=== PATIENT | female | born 1980 | race Caucasian/White ===

== ENCOUNTER 2020-03-15 11:35 | Outpatient (NON) | payer OTHER, SELFPAY ==
[2020-03-15 23:09] LABS: SARS-CoV-2 RNA PCR Negative
== END 2020-03-15 11:36 ==
PROVIDERS: PCP Family Medicine; Visit Provider Family Medicine
DX: Z20.828 Contact with and (suspected) exposure to other viral communicable diseases (principal)
CPT/HCPCS: 87635; C9803; U0003

== ENCOUNTER → 2020-08-31 11:31 | Outpatient (CLI) | payer OTHER, SELFPAY ==
--- NOTE | ~2020-08-31 | MM_ITS ---
EXAMINATION: MM screening cari BI w jayden HISTORY: Screening mammogram TECHNIQUE: Craniocaudal and mediolateral oblique 3-D tomosynthesis images were obtained and synthetic 2-D images were generated. CAD analysis was submitted and interpreted. COMPARISON: None, baseline BREAST PARENCHYMAL COMPOSITION: The breasts are extremely dense, which lowers the sensitivity of mamm ography. FINDINGS: There is no evidence of suspicious mass, calcification, or architectural distortion to sugg est malignancy in either breast. IMPRESSION: 1. No mammographic evidence of malignancy. 2. Recommend routine screening mammography in one year. BI-RADS Category 1: Negative Reviewed, dictated and finalized at location A.
== END ==
PROVIDERS: Visit Provider Obstetrics & Gynecology
DX: Z12.31 Encounter for screening mammogram for malignant neoplasm of breast (principal)
CPT/HCPCS: 77063; 77067

== ENCOUNTER → 2021-06-20 01:41 | Outpatient (CLI) | payer OTHER, SELFPAY ==
[2021-06-21 01:23] LABS: SARS-CoV-2 RNA PCR Positive
== END ==
PROVIDERS: PCP Family Medicine; Visit Provider Family Medicine
DX: U07.1 COVID-19 (principal)
CPT/HCPCS: C9803; U0003; U0005

== ENCOUNTER → 2021-10-26 12:25 | Outpatient (CLI) | payer OTHER, SELFPAY ==
--- NOTE | ~2021-10-26 | MM_ITS ---
EXAMINATION: MM screening cari BI w jayden HISTORY: Screening mammogram TECHNIQUE: Craniocaudal and mediolateral oblique 3-D tomosynthesis images were obtained and synthetic 2-D images were generated. CAD analysis was submitted and interpreted. COMPARISON: 08/31/2020 BREAST PARENCHYMAL COMPOSITION: The breasts are extremely dense, which lowers the sensitivity of mamm ography. FINDINGS: There is no suspicious mass, calcification, or architectural distortion to suggest malignan cy in either breast. There has been no suspicious interval change. IMPRESSION: 1. No mammographic evidence of malignancy. 2. Recommend routine screening mammography in one year. BI-RADS Category 1: Negative Reviewed, dictated and finalized at location A.
== END ==
PROVIDERS: PCP Family Medicine; Visit Provider Obstetrics & Gynecology
DX: Z12.31 Encounter for screening mammogram for malignant neoplasm of breast (principal)
CPT/HCPCS: 77063; 77067

== ENCOUNTER 2022-08-27 11:17 | Outpatient (RCR) | payer OTHER, SELFPAY ==
[2022-08-27 12:15] VITALS: BP 106/55; PULSE 76
== END 2022-11-25 23:59 | disposition home or self-care (01) ==
LOC: ANHOBOP 11:17
PROVIDERS: PCP Family Medicine; Visit Provider Obstetrics & Gynecology
DX: O36.8130 Decreased fetal movements, third trimester, not applicable or unspecified (principal); Z3A.27 27 weeks gestation of pregnancy
CPT/HCPCS: 59025

== ENCOUNTER 2022-11-12 00:02 | Inpatient (IN) | payer OTHER, SELFPAY ==
[2022-11-12] VITALS (70 sets, daily range): BP systolic 86–147; BP diastolic 46–77; PULSE 73–140; RESP 12–16; TEMP 36.3–37.1; O2SAT 96–100; BMI 27.6
--- NOTE | 2022-11-12 00:30 | LDADM ---
0030 This patient, Yani Judd, was admitted to Labor/Delivery/Recovery 120 on 11/12/22 at 00:02. Plans for labor, pain management and were discussed with patient. Patient/family oriented to hospital policies and general routines including ID bracelet, bed and alarms, visiting hours, pain management, procedures, bathroom and other care routines, personal items, smoking policy, room service/diet and guest tray routines, infant security routines, and visiting hours. Patient/Family are encouraged to report perceived risks to care and to ask questions if they do not understand what they are told or what they should do. See OBIX for further documentation. Dr. Sparks notified of patient admission. Orders received and noted.
[2022-11-12] MEDS: LACTATED RINGERS 1,000 ML 125 ML IV CONT ×4 (00:51→08:08)
[2022-11-12] MEDS: ceFAZolin 2 GM/D5W 50 ML 2 GM/50 ML BAG IVPB (00:53)
[2022-11-12 01:05] LABS: Basophils Percent Auto 0.3 % (0.2-1.2); Eosinophils Absolute Auto 0.1 K/mm3 (0-0.3); Eosinophils Percent Auto 0.8 % (0-4.4); Hematocrit 38.9 % (37.0-47.0); Hemoglobin 12.9 g/dL (12.0-15.0); Immature Granulocyte Absolute 0.06 K/mm3 (0.00-0.031); Immature Granulocyte Percent A 0.7 % (0-0.5); Lymphocytes Absolute Auto 2.43 K/mm3 (0.9-3.2); Lymphocytes Percent Auto 27.8 % (18.3-44.2); Mean Corpuscular HGB Conc 33.2 g/dl (32-36); Mean Corpuscular Hemoglobin 33.1 pg (26-34); Mean Corpuscular Volume 99.7 fl (80-100); Mean Platelet Volume 11.9 fl (7.4-10.4); Monocytes Absolute Auto 0.7 K/mm3 (0.1-0.6); Monocytes Percent Auto 8.4 % (2.6-8.5); Neutrophils Absolute Auto 5.4 K/mm3 (1.3-6.7); Platelet Count Result 189 k/mm3 (150-375); Red Cell Distribution Width 13.2 % (11.5-14.5); White Blood Count 8.7 K/mm3 (4.5-10.0)
--- NOTE | 2022-11-12 01:15 | LDADM ---
This patient, Yani Judd, was admitted to Labor/Delivery/Recovery 120 on 11/12/22 at 00:02. Plans for labor, pain management and were discussed with patient. Patient/family oriented to hospital policies and general routines including ID bracelet, bed and alarms, visiting hours, pain management, procedures, bathroom and other care routines, personal items, smoking policy, room service/diet and guest tray routines, security routines, and visiting hours. Patient/Family are encouraged to report perceived risks to care and to ask questions if they do not understand what they are told or what they should do. See OBIX for further documentation.
--- NOTE | 2022-11-12 03:02 | PC.NURSE ---
Dr. Sparks notified patient becoming more uncomfortable and SVE. Orders received for fentanyl for pain and terb to decrease contractions. Discussed plan with patient and patient refused meds at this time. Increased IVF for fluid bolus.
--- NOTE | 2022-11-12 06:04 | WPDANESEPP ---
Anes - Eval Pre Procedure Procedure: Operation Date: 11/12/22 00:05 Proposed Procedures p Section - Tonny Sparks MD Operation Date: 11/15/22 12:00 Proposed Procedures p Section - Tonny Sparks MD Date/Time: 11/12/22 06:04 Pre Op Diagnosis: Leaking Fluid Patient Data Age: 42 Gender: F Height: 1.7 m Weight: 80 kg Last Vital Signs Temp 36.9 C 11/12/22 04:00 Pulse 96 11/12/22 01:16 BP 110/60 11/12/22 01:16 O2 Del Method Room Air 11/12/22 01:14 Allergies Allergy/AdvReac Type Severity Reaction Status Date / Time No Known Allergies Allergy Mild Verified 10/22/22 10:16 Home Medications Medication Instructions Recorded Confirmed Type prenat.vits,michelle,[id number] 1 tablet PO DAILY 10/24/22 10/24/22 History Laboratory Tests 11/12/22 00:55 WBC 8.7 K/mm3 (4.5-10.0) RBC 3.90 L M/mm3 (4.2-5.4) Hgb 12.9 g/dL (12.0-15.0) Hct 38.9 % (37.0-47.0) MCV 99.7 fl (80-100) MCH 33.1 pg (26-34) MCHC 33.2 g/dl (32-36) RDW 13.2 % (11.5-14.5) Plt Count 189 k/mm3 (150-375) MPV 11.9 H fl (7.4-10.4) Immature Gran % (Auto) 0.7 H % (0-0.5) Neut % (Auto) 62.0 % (45.5-73.1) Lymph % (Auto) 27.8 % (18.3-44.2) [place] % (Auto) 8.4 % (2.6-8.5) Eos % (Auto) 0.8 % (0-4.4) Baso % (Auto) 0.3 % (0.2-1.2) Lymph # (Auto) 2.43 K/mm3 (0.9-3.2) [place] # (Auto) 0.7 H K/mm3 (0.1-0.6) Eos # (Auto) 0.1 K/mm3 (0-0.3) Baso # (Auto) 0.0 K/mm3 (0.0-0.1) Abs Immat Gran (auto) 0.06 H K/mm3 (0.00-0.031) Absolute Neuts (auto) 5.4 K/mm3 (1.3-6.7) Absolute Nucleated RBC 0.0 K/mm3 (0.0-0.012) Nucleated RBC % 0.0 % (0.0-0.2) RPR Pending Blood Type O Positive Antibody Screen Negative Patient hx anesthesia problems: none Family hx anesthesia problems: none Results Review: All pre-operative results and documents have been reviewed as part of the pre-operative evaluation. [facility] Family History Family History Grandparent Acute myocardial infarction Grandparent Carcinoma of colon Grandparent Family history of malignant neoplasm of breast in first degree relative Daughter Brain tumor Social History Social History Smoking status: Never smoker Second hand tobacco smoke exposure: No Substance use: never Lack of Transportation: No Lack of Food: Never True Current Housing: I Have Housing Concerned About Future Housing: No Difficulty Paying Gas/Electric Bills: No Difficulty Paying for Meds: No Currently Unemployed: No Education: Master's Degree or Higher Difficulty w/ Childcare or Family Care: No Spiritual care concerns: No Exam Day of Procedure 11/12/22 06:04 Patient weight: overweight Heart: regular rate and rhythm Lungs: normal air movement Airway: Mallampati scale Neurological: alert and oriented
--- NOTE | 2022-11-12 06:13 | PM.IMHP ---
H&P: HPI History of Present Illness Date/Time: 11/12/22 06:13 Chief Complaint: Rangel burns Narrative: 42 y/o at 38 4/7 weeks here with a gush of fluid. Now starting to feel some contractions. RomPlus positive. GBS pos. Prior , desires repeat. Review of Systems Review of Systems: All systems reviewed & are unremarkable except as noted in HPI and below PMFSH Surgical History Surgical History History of delivery Family History Family History Grandparent Acute myocardial infarction Grandparent Carcinoma of colon Grandparent Family history of malignant neoplasm of breast in first degree relative Daughter Brain tumor Social History Social History Smoking status: Never smoker Second hand tobacco smoke exposure: No Substance use: never Lack of Transportation: No Lack of Food: Never True Current Housing: I Have Housing Concerned About Future Housing: No Difficulty Paying Gas/Electric Bills: No Difficulty Paying for Meds: No Currently Unemployed: No Education: Master's Degree or Higher Difficulty w/ Childcare or Family Care: No Spiritual care concerns: No Meds Home Medications and Allergies Home Medications Medication Instructions Recorded Confirmed Type prenat.vits,michelle,[id number] 1 tablet PO DAILY 10/24/22 10/24/22 History Allergies Allergy/AdvReac Type Severity Reaction Status Date / Time No Known Allergies Allergy Mild Verified 10/22/22 10:16 Vital Signs Vital Signs - 24 hr 11/12/22 00:46 11/12/22 01:01 11/12/22 01:16 Temperature Pulse Rate 91 120 H 96 Blood Pressure 147/77 H 90/65 L 110/60 Oxygen Delivery 11/12/22 00:15 11/12/22 02:00 11/12/22 04:00 Temperature 37.0 C 37.1 C 36.9 C Pulse Rate Blood Pressure Oxygen Delivery 11/12/22 06:00 11/12/22 01:14 Temperature 36.9 C Pulse Rate Blood Pressure Oxygen Delivery Room Air Exam Const: Orientation/consciousness: patient oriented x3 Other: Well-developed, well-nourished female in no acute distress. Neck: Thyroid: thyroid normal Lymphatic: no lymphadenopathy noted (in neck, axilla or inguinal nodes) Resp: Effort & Inspection: normal respiratory effort Auscultation: clear to auscultation bilaterally Cardio: Rate: regular rate Rhythm: regular rhythm Heart sounds: S1 normal heart sound present and S2 normal heart sound present GI: Other: ABD: Soft, nontender, nondistended, gravid No guarding or rebound tenderness. No hepatosplenomegaly. NST reactive. TOCO: irregular contractions. : General: Yes no CVA tenderness Other: Cervix 1/50/-2. SROM. Back/Spine/Pelvis: Back: no CVA tenderness Skin: General skin exam: normal color and no rashes or lesions noted Neuro: General: patient oriented x3 Extrem: Other: Extremities: nontender with no edema Psych: Mental Status: mental status grossly normal Affect: normal affect H&P: Results Labs Labs: Short CBC 11/12/22 Range/Units 00:55 WBC 8.7 (4.5-10.0) K/mm3 Hgb 12.9 (12.0-15.0) g/dL Hct 38.9 (37.0-47.0) % Plt Count 189 (150-375) k/mm3 Assessment and Plan Assessment and plan (1) History of delivery: Code(s): Z98.891 - History of uterine scar from previous surgery Status: Acute Assessment and Plan: A: IUP at 38 4/7 weeks with prior , SROM, GBS pos. Desires repeat . P: Ancef / azithromycin. Offered repeat . She understands risks of surgery to include risks of anesthesia, risks of pain, infection, bleeding, blood products, thromboembolic phenomena and damage to adjacent structures such as bowel, bladder, ureters, blood vessels and nerves. She understands all these risks and elects to proceed with surgery. (2)
--- NOTE | 2022-11-12 06:17 | WPDHPUPDATE1 ---
History and Physical Update Update Date/Time: 11/12/22 06:17 History and Physical has been reviewed, including an updated exam of the patient. There are NO changes in the patient's condition. Risks, benefits, and alternatives have been discussed and questions answered. Patient agrees to proceed with procedure.
[2022-11-12] MEDS: ceFAZolin 1 GM/NS 50 ML 1 GM/50 ML BAG IVPB (06:21)
[2022-11-12] MEDS: AZITHROMYCIN 500 MG/NS 250 ML 500 MG/250 ML BAG 250 MG IVPB (06:27)
--- NOTE | 2022-11-12 07:25 | PM.OBPRVD ---
OB - Delivery Note Procedure Delivery date: 11/12/22 Procedure: Procedures Operation Date: 11/12/22 00:05 <No data on this case meets the specified criteria> Operation Date: 11/15/22 12:00 <No data on this case meets the specified criteria> Repeat low transverse delivery Events: Positive Group B Strep (GBS) and Previous Delivery Induction method: None Delivery monitor: External FHT and External Uterine Route of delivery: Specimen: Yes (cord blood) Quantitative Blood Loss (ml): 580 Anesthesia type: Spinal Disposition: PACU Complications: None Narrative: Preop Dx: IUP at 38 4/7 weeks, SROM, prior , GBS pos. Postop Dx: Same Findings: Normal-appearing uterus, tubes and ovaries. Techniques: The patient was taken to the operating room where she was prepared and draped in the usual sterile fashion in dorsal supine position with a leftward tilt. She received cefazolin preoperatively. Spinal anesthesia was found to be adequate. A Pfannenstiel skin incision was made along the previous scar line and was carried through to the underlying layer of the fascia. The fascia was incised in the midline and the incision was extended laterally. The fascia was dissected free of the underlying rectus muscles. The rectus muscles were in the midline. The peritoneum was identified, tented up and entered sharply. The peritoneal incision was extended superiorly and inferiorly with good visualization of the bladder. The bladder blade was placed. The vesicouterine peritoneum was identified, tented up and entered sharply. The incision was extended laterally and the bladder flap was developed. The bladder blade was replaced. The uterus was then incised sharply in a transverse fashion along the lower uterine segment. The incision was extended laterally. The infant's head was delivered atraumatically to the sterile field, followed by the body. The nose and mouth were bulb suctioned. After a delay, the cord was clamped and cut. The infant was handed off the field. Cord blood was collected. The placenta was removed manually and was passed off the field. The uterus was exteriorized and cleared of all clots and debris. The uterine incision was reapproximated using 0 Monocryl in a running, locked fashion. A second, imbricating layer of the same suture was run. Excellent hemostasis resulted as did excellent reapproximation of the normal anatomy. The uterus was returned the abdomen. The pelvis was irrigated copiously with warmed normal saline. Rigorous hemostasis was assured. The fascial layer was reapproximated using 0 Vicryl in a running fashion. The skin was closed with a running, subcuticular stitch of 4 0 Vicryl. Dermaflex was applied externally. Sponge, lap, needle and instrument counts were correct. The patient was taken to the recovery room in stable condition. The infant went to the nursery in stable condition. I was present and scrubbed the entire procedure. [place] Baby Date of : 11/12/22 Time of : 06:52 Weeks of gestation at delivery: 38 Infant gender: Female Weight (pounds): 7 Weight (ounces): 14 presentation: vertex Placenta delivery description: Manual Removal and Normal Configuration Cord Vessel Description: 3 Vessels and Delayed Cord Clamping score one minute: 8 score five minutes: 9
--- NOTE | 2022-11-12 07:28 | PM.OBDSVD ---
DS: Admitting Diagnosis Discharge Date 11/15/22 Admitting Diagnosis IUP at 38 4/7 weeks SROM Prior GBS pos DS: Discharge Diagnosis Discharge Diagnosis (1) delivery delivered: Code(s): O82 - Encounter for delivery without indication Status: Acute (2) GBS (group B Streptococcus carrier), +RV culture, currently : Code(s): O99.820 - Streptococcus B carrier state complicating Status: Acute OB - DS: Summary OB Procedures : NST OB Procedures Intrapartum: and GBS prophylaxis OB Procedures: : None Peripartum Data Procedures: Procedures Operation Date: 11/12/22 00:05 <No data on this case meets the specified criteria> Operation Date: 11/15/22 12:00 <No data on this case meets the specified criteria> Time Spent with Patient Time attestation: Total time spent providing and/or coordinating discharge services: DS: Data Data Completed and Pending Labs on day of discharge: Labs from last 24 hours 11/12/22 00:55 WBC 8.7 RBC 3.90 L Hgb 12.9 Hct 38.9 MCV 99.7 MCH 33.1 MCHC 33.2 RDW 13.2 Plt Count 189 MPV 11.9 H Immature Gran % (Auto) 0.7 H Neut % (Auto) 62.0 Lymph % (Auto) 27.8 [place] % (Auto) 8.4 Eos % (Auto) 0.8 Baso % (Auto) 0.3 Lymph # (Auto) 2.43 [place] # (Auto) 0.7 H Eos # (Auto) 0.1 Baso # (Auto) 0.0 Abs Immat Gran (auto) 0.06 H Absolute Neuts (auto) 5.4 Absolute Nucleated RBC 0.0 Nucleated RBC % 0.0 RPR Pending Blood Type O Positive Antibody Screen Negative Discharge Plan Discharge Attending physician on discharge: Tonny Sparks Discharging Clinician: Tonny Sparks Patient Disposition: Home, Self-Care Activity: may shower and pelvic rest Diet: regular Wound Care Instructions: incision open to air Discharge Instructions: Call or return if temperature above 100.4? F, increased abdominal pain, increased vaginal bleeding or any new problems. Stand Alone Forms: General Discharge Information Follow-up/Referrals: Tonny Sparks MD [Physician] - 4 Weeks Discharge Medications: New ibuprofen 600 mg tablet 600 mg PO Q6H PRN (Reason: cramps) Qty: 30 0RF hydrocodone-acetaminophen 5-325 mg tablet 1 - 2 tablet PO Q6H PRN (Reason: pain) Qty: 30 0RF Continued #2 Tablet 1 tablet PO DAILY Date of admission: 11/12/22 00:02 Primary Care Provider: Lesli Alcazar Admitting Provider: Tonny Sparks Attending physician on admission: Tonny Sparks Condition: Stable
[2022-11-12] MEDS: OXYTOCIN 30 UNITS/NS 500 ML 30 UNITS/500 ML BAG 125 UNITS IV CONT (08:08)
[2022-11-12] MEDS: MORPHINE SULFATE INJ (*CRX) 10 MG/ML AMP 2 MG IV PUSH ×4 (08:22→09:21)
[2022-11-12] MEDS: KETOROLAC 15 MG/ML VIAL (*BKC) IV PUSH (09:49)
[2022-11-12 11:28] LABS: Rapid Plasma Reagin Non-Reactive (NonReactive)
--- NOTE | 2022-11-12 16:10 | PC.NURSE ---
[id number] Introductions were made, then consulted with patient to assess needs related to . Mother led the conversation with her?plans to feed?her infant and the?experience so far. Resources provided for inpatient and outpatient services with the feeding sheet, mom/baby guide and name written on the white board. Mother voiced understanding of information and requests assistance due to her lack of mobility after a C/S. Mother works well with her with encouragement and education. Encouraged understanding of the benefits of skin to skin (demonstrating unwrapping infant and placing upright on her chest), stimulating with massage touch, changing positions to encourage wakefulness, how to watch for early feeding cues, responsive feeding, feeding on demand (aiming for 8-12 times in 24 hours, about every 2-3 hours), milk production, building/maintaining a milk supply, duration of feeding, signs of adequate intake/output and how to record on the feeding sheet. Reviewed positioning and ear, shoulder, hip alignment, supporting the breast to facilitate a deep latch, asymmetrical latch (off-center), leading with the chin with a big, open, wide gape and body close to mother. Infant latched optimally to the left breast in laid-back position. Education given to mother of how to visualize suck/swallow ratios and listen for drinking at the breast. was able to maintain latch without discomfort to mother. Nipple care reviewed with optimal latch and good positioning. Reviewed good handwashing when or touching the breast/nipples to prevent infection. Resources used to facilitate learning were used with the tool. Mother voiced understanding of skin to skin, stimulating with massage touch, responsive feedings, hand expressed colostrum, talking to infant to encourage if it has been 2 -2.5 hours since the start of the last , to call if infant does not latch, or if there is discomfort with . Resources provided for inpatient/outpatient with business card, feeding sheet and the mom/baby guide. Mother voiced understanding of information, demonstrated learning and will call if there is a request for assistance. Reported to the primary RN.
[2022-11-12] MEDS: DOCUSATE SODIUM 100 MG CAPSULE PO (16:35)
[2022-11-12] MEDS: KETOROLAC 30 MG/ML VIAL (*BKC) IV PUSH (16:35)
[2022-11-12] MEDS: KCL 20 MEQ/D5/0.45% SOD CHL 1,000 ML 125 ML IV CONT (16:35)
[2022-11-13 00:15] VITALS: BP 120/66; PULSE 83; RESP 18; TEMP 36.7; O2SAT 99
[2022-11-13] MEDS: HYDROcodone/acetaminophen (*CRX) 5-325 MG TABLET 1 TAB PO ×2 (00:39→12:15)
[2022-11-13] MEDS: IBUPROFEN 600 MG TABLET PO ×4 (00:40→23:55)
[2022-11-13 05:51] LABS: Basophils Percent Auto 0.2 % (0.2-1.2); Eosinophils Percent Auto 0.5 % (0-4.4); Hematocrit 31.2 % (37.0-47.0); Hemoglobin 10.3 g/dL (12.0-15.0); Immature Granulocyte Absolute 0.06 K/mm3 (0.00-0.031); Immature Granulocyte Percent A 0.7 % (0-0.5); Lymphocytes Absolute Auto 1.62 K/mm3 (0.9-3.2); Lymphocytes Percent Auto 18.6 % (18.3-44.2); Mean Corpuscular Hemoglobin 33.6 pg (26-34); Mean Corpuscular Volume 101.6 fl (80-100); Mean Platelet Volume 11.3 fl (7.4-10.4); Monocytes Absolute Auto 0.8 K/mm3 (0.1-0.6); Monocytes Percent Auto 9.1 % (2.6-8.5); Neutrophils Absolute Auto 6.2 K/mm3 (1.3-6.7); Neutrophils Percent Auto 70.9 % (45.5-73.1); Platelet Count Result 145 k/mm3 (150-375); Red Blood Count 3.07 M/mm3 (4.2-5.4); Red Cell Distribution Width 13.2 % (11.5-14.5); White Blood Count 8.7 K/mm3 (4.5-10.0)
[2022-11-13 08:00] VITALS: BP 106/56; PULSE 85; RESP 18; TEMP 37.1; O2SAT 99
--- NOTE | 2022-11-13 08:29 | PM.OBPNVD ---
OB - PN: Subj Subjective Date/time seen: 11/13/22 08:29 Narrative: Pain OK. Tolerating diet. OB - PN: Obj Data Labs 11/13/22 05:39 Labs: Laboratory Results - last 24 hr 11/12/22 11/13/22 00:55 05:39 WBC 8.7 RBC 3.07 L Hgb 10.3 L Hct 31.2 L MCV 101.6 H MCH 33.6 MCHC 33.0 RDW 13.2 Plt Count 145 L MPV 11.3 H Immature Gran % (Auto) 0.7 H Neut % (Auto) 70.9 Lymph % (Auto) 18.6 [place] % (Auto) 9.1 H Eos % (Auto) 0.5 Baso % (Auto) 0.2 Lymph # (Auto) 1.62 [place] # (Auto) 0.8 H Eos # (Auto) 0.0 Baso # (Auto) 0.0 Abs Immat Gran (auto) 0.06 H Absolute Neuts (auto) 6.2 Absolute Nucleated RBC 0.0 Nucleated RBC % 0.0 RPR Non-reactive OB - PN A/P Plan Comments: A: POD#1, doing well. P: Routine care. Exam Narrative: AVSS I/O OK ABD soft, nontender, fundus firm. Incision c/d/i. EXT nontender
[2022-11-13] MEDS: HYDROcodone/acetaminophen (*CRX) 10-325 MG TABLET 1 TAB PO ×3 (08:30→23:55)
[2022-11-13] MEDS: SIMETHICONE 80 MG TAB.CHEW PO ×3 (08:30→17:45)
[2022-11-13] MEDS: DOCUSATE SODIUM 100 MG CAPSULE PO ×2 (08:30→17:45)
[2022-11-13] MEDS: MULTIVIT/MIN/PREN/FOL AC/IRON TABLET 1 TAB PO (08:30)
--- NOTE | 2022-11-13 13:12 | WPDANLDPN2 ---
Anes-Prog Note L&D Date/Time: 11/13/22 13:12 Comfortable throughout: section Neuraxial method: spinal Epidural/Spinal procedure site: clean & non-tender Neuro status: Neuro function grossly intact. Cardiovascular status: normal Respiratory status: normal Airway patency: baseline Mental status: baseline Post-Op hydration status: normal Vital Signs: Last Vital Signs Temp 37.1 C 11/13/22 08:00 Pulse 85 11/13/22 08:00 Resp 18 11/13/22 08:00 BP 106/56 L 11/13/22 08:00 Pulse Ox 99 11/13/22 08:00 O2 Del Method Room Air 11/12/22 20:38 Pain score (VAS): 3/10 I/O: Intake & Output 11/12/22 11/13/22 11/13/22 23:59 07:59 15:59 Intake Total 500 640 Output Total 1280 1173 400 Balance -911 -463 -400 Post-procedural complaints: none Patient feedback: Patient satisfied with anesthetic care.
--- NOTE | 2022-11-13 13:12 | WPDANLDNPN2 ---
Anes-Prog Note L&D-Neuraxial Date/Time: 11/13/22 13:12 Neuraxial medications: intrathecal PF morphine Opiod-related complaints: pruritis mild, no treatment Patient feedback: Patient satisfied with post-operative pain management.
--- NOTE | 2022-11-13 13:22 | PC.NURSE ---
[id number] Purposefully rounded to assess for needs. Mother is feeling a bit better today. She is demonstrating a more upright position in bed with latched to the right breast using cross cradle positioning and denies pain. Mother voiced understanding of skin to skin, stimulating with massage touch, responsive feedings,talking to infant to encourage on demand and if it has been 2 -2.5 hours since the start of the last , to call if infant does not latch, or if there is discomfort with .
[2022-11-13 14:20] VITALS: BP 119/59; PULSE 82; RESP 18; TEMP 36.8; O2SAT 100
[2022-11-13 20:35] VITALS: BP 118/57; PULSE 95; RESP 16; TEMP 36.8; O2SAT 97
[2022-11-14] VITALS: BP 111/57; PULSE 78; RESP 14; TEMP 36.8; O2SAT 100
[2022-11-14] MEDS: IBUPROFEN 600 MG TABLET PO ×3 (05:49→21:18)
[2022-11-14] MEDS: HYDROcodone/acetaminophen (*CRX) 5-325 MG TABLET 1 TAB PO ×4 (05:49→17:22)
--- NOTE | 2022-11-14 07:18 | PM.OBPNVD ---
OB - PN: Subj Subjective Date/time seen: 11/14/22 07:18 Narrative: Pain OK. Tolerating diet. OB - PN: Obj Data Labs 11/13/22 05:39 OB - PN A/P Plan Comments: A: POD#2, doing well. P: Routine care. Plan home tomorrow. Exam Narrative: AVSS I/O OK ABD soft, nontender, fundus firm. Incision c/d/i. EXT nontender
[2022-11-14 08:45] VITALS: BP 120/57; PULSE 90; RESP 16; TEMP 37.1; O2SAT 100
[2022-11-14] MEDS: MULTIVIT/MIN/PREN/FOL AC/IRON TABLET 1 TAB PO (09:23)
[2022-11-14] MEDS: DOCUSATE SODIUM 100 MG CAPSULE PO ×2 (09:24→16:41)
[2022-11-14 21:20] VITALS: BP 125/62; PULSE 78; RESP 19; TEMP 36.6; O2SAT 99
[2022-11-15] MEDS: IBUPROFEN 600 MG TABLET PO ×2 (03:53→10:19)
[2022-11-15] MEDS: HYDROcodone/acetaminophen (*CRX) 5-325 MG TABLET 1 TAB PO (06:21)
[2022-11-15 07:30] VITALS: BP 116/50; PULSE 81; RESP 16; TEMP 37.2; O2SAT 98
--- NOTE | 2022-11-15 09:02 | PM.OBPNVD ---
OB - PN: Subj Subjective Date/time seen: 11/15/22 09:02 Narrative: Pain OK. Tolerating diet. Would like to go home. OB - PN: Obj Data Labs 11/13/22 05:39 OB - PN A/P Plan day: 3 Comments: A: POD#3, doing well. P: Home to f/u 4 weeks. Exam Narrative: AVSS ABD soft, nontender, fundus firm. Incision c/d/i. EXT nontender
[2022-11-15] MEDS: DOCUSATE SODIUM 100 MG CAPSULE PO (10:19)
[2022-11-15] MEDS: HYDROcodone/acetaminophen (*CRX) 10-325 MG TABLET 1 TAB PO (10:19)
[2022-11-15] MEDS: MULTIVIT/MIN/PREN/FOL AC/IRON TABLET 1 TAB PO (10:20)
--- NOTE | 2022-11-15 13:25 | PC.NURSE ---
[id number] Mother led the conversation with her experience and plan to feed her infant so far and her ability to independently latch optimally without discomfort. has had appropriate feedings in the last 24 hours meets the outcomes for weight, output and jaundice at this time. Mother states she is confident to continue effectively breastfeed her at home and states her breast are heavier with her milk coming in , when to call for assistance and denies any additional assistance or education at this time, and there is a lot of distractions in the room at this time with the older children. Mother voiced understanding of the education shared and acknowledged RN, IBCLC contact information. Primary RN present.
[2022-11-18 11:05] VITALS: BP 103/73; PULSE 82; RESP 18; TEMP 37.1
== END 2022-11-15 11:55 | disposition home or self-care (01) | DRG 788 ==
LOC: ANHLDR 07:30 → ANHOB2 10:12
PROVIDERS: Admitting Provider Obstetrics & Gynecology; PCP Family Medicine; Visit Provider Obstetrics & Gynecology
PROC: 10D00Z1 Extraction of Products of Conception, Low, Open Approach (ICD-10-PCS; CPT 59514; principal; 2022-11-12 00:05)
DX: O34.219 Maternal care for unspecified type scar from previous cesarean delivery (principal); O99.824 Streptococcus B carrier state complicating childbirth; Z3A.38 38 weeks gestation of pregnancy; Z37.0 Single live birth
CPT/HCPCS: 36415; 85025; 86592; 86850; 86900; 86901; A9270; J0456; J0690; J1885; J2270; J2274; J2405; J2590; J3480; J7120

== ENCOUNTER 2022-11-21 13:14 | Outpatient (CLI) | payer OTHER, SELFPAY ==
--- NOTE | ~2022-11-21 | US_ITS ---
EXAMINATION:US venous doppler LE LT INDICATION:Left leg pain. TECHNIQUE: Multiple grayscale, color flow and Doppler images of the left lower extremity deep venous systems were obtained and reviewed. COMPARISON:No prior studies for comparison. FINDINGS: The common femoral, superficial femoral and popliteal veins demonstrate normal respiratory variation, augmentation and compressibility. Color flow is also seen within the posterior tibial, pe roneal, greater saphenous and profunda veins. IMPRESSION: 1: No lower extremity deep venous thrombosis. Reviewed, dictated and finalized at location L.
== END 2022-11-21 13:15 | disposition home or self-care (01) ==
PROVIDERS: PCP Family Medicine; Visit Provider Obstetrics & Gynecology
DX: I82.402 Acute embolism and thrombosis of unspecified deep veins of left lower extremity (principal)
CPT/HCPCS: 93971

== ENCOUNTER 2024-10-01 15:58 | Outpatient (CLI) | payer OTHER, SELFPAY ==
--- NOTE | ~2024-10-01 | MM_ITS ---
EXAMINATION: MM screening cari BI w jayden HISTORY: Screening TECHNIQUE: Craniocaudal and mediolateral oblique 3-D tomosynthesis images were obtained and synthetic 2-D images were generated. CAD analysis was submitted and interpreted. COMPARISON: No prior mammogram is available for comparison at this institution. BREAST PARENCHYMAL COMPOSITION: Dense: The breasts are extremely dense, which lowers the sensitivity of mammography. FINDINGS: There is a partially visualized mass superior aspect of the right breast, posterior third, overlying the pectoralis muscle on MLO view. The left breast is stable without evidence for malignan cy. IMPRESSION: 1. Right breast mass. 2. Additional mammographic views and possible breast ultrasound are recommended. BI-RADS Category 0: Incomplete: Needs additional imaging evaluation. Reviewed, dictated and finalized at location A. IMPRESSION: 1. Right breast mass. 2. Additional mammographic views and possible breast ultrasound are recommended . BI-RADS Category 0: Incomplete: Needs additional imaging evaluation.
== END 2024-10-01 15:59 | disposition home or self-care (01) ==
LOC: MICIMG 15:59
PROVIDERS: PCP Pediatrics; Visit Provider Student in an Organized Health Care Education/Training Program
DX: Z12.31 Encounter for screening mammogram for malignant neoplasm of breast (principal); R92.8 Other abnormal and inconclusive findings on diagnostic imaging of breast
CPT/HCPCS: 77063; 77067

== ENCOUNTER 2024-10-26 09:27 | Outpatient (CLI) | payer OTHER, SELFPAY ==
--- NOTE | ~2024-10-26 | MMUS_ITS ---
EXAMINATION: MM diagnostic cari RT w jayden, US breast RT complete HISTORY: Palpable right breast abnormality TECHNIQUE: Additional 3-D tomosynthesis images of the right breast were performed and synthetic 2-D i mages were generated. CAD analysis was submitted and interpreted. High resolution complete right ellie st ultrasound was performed. COMPARISON: Comparison to multiple prior studies sequentially, with oldest reviewed study dated 08/31. BREAST PARENCHYMAL COMPOSITION: Dense: The breasts are extremely dense, which lowers the sensitivity of mammography. FINDINGS: MAMMOGRAPHIC FINDINGS: There are no suspicious masses, calcifications or architectural distortion in the right breast to sug gest malignancy. Focal asymmetry seen on prior screening mammogram superiorly in the right breast on MLO view compresses with spot views, compatible with superimposed fibroglandular tissue. ULTRASOUND: Complete US of all 4 quadrants of the right breast/s and retroareolar region was reviewed. Normal het erogeneous echotexture without focal solid or cystic mass. There are normal-appearing lymph nodes of the right axilla. IMPRESSION: 1. No evidence for malignancy in the right breast. 2. Routine yearly screening mammogram and regular clinical breast examination are recommended. BI-RADS Category 1: Negative Reviewed, dictated and finalized at location B. IMPRESSION: 1. No evidence for malignancy in the right breast. 2. Routine yearly screening mammogram and regular clinical breast examination a re recommended. BI-RADS Category 1: Negative
== END 2024-10-26 09:28 | disposition home or self-care (01) ==
LOC: MICIMG 09:28
PROVIDERS: PCP Family Medicine; Visit Provider Student in an Organized Health Care Education/Training Program
DX: N63.10 Unspecified lump in the right breast, unspecified quadrant (principal)
CPT/HCPCS: 76641; 77061; 77065; G0279

== ENCOUNTER 2025-06-06 08:31 | Outpatient (CLI) | payer OTHER, SELFPAY ==
--- OUTSIDE RECORDS SUMMARY | 2025-06-06 08:42 | XMS_ITS | Clinical Summary ---
Author Organization [facility] Address [address] [place] [address] Phone Care Team Providers Care Web Services Professional Name Role Phone Lesli Alcazar MD Primary Care Provider [phone] Allergies Active Allergy Reactions Criticality Noted Date Comments Iodinated Contrast Media Rash 11/30/2016 Medications No known medications Social History Tobacco Use Types Packs/Day Years Used Date Smoking Tobacco: Never Alcohol Use Standard Drinks/Week Comments Yes 0 (1 standard drink = 0.6 oz pur e alcohol) RARELY Comments Unknown Sex and Gender Information Value Date Recorded Sex Assigned at Not on file Legal Sex Female 1:22 PM CDT Gender Identity Not on file Sexual Orientation Not on file Last Filed Vital Signs Vital Sign Reading Time Taken Comments Blood Pressure 118/56 11/30/2016 3:45 PM CDT Pulse 84 11/30/2016 3:45 PM CDT Temperature 36.8 C (98.3 F) 11/30/2016 1:24 PM CDT Respiratory Rate 16 11/30/2016 3:45 PM CDT Oxygen Saturation 100% 11/30/2016 3:45 PM CDT Inhaled Oxygen Concentration - - Weight 63.5 kg (140 lb) 11/30/2016 1:24 PM CDT Height 170.2 cm (5' 7) 11/30/2016 1:24 PM CDT Body Mass Index 21.93 11/30/2016 1:24 PM CDT Plan of Treatment Health Maintenance Due Date Last Done Comments Hepatitis C Virus (HCV) Screening 1980 TdaP Immunization 1980 Hepatitis B Immunization (1 of 3 - 19+ 3-dose series) 1998 Pap Smear 2000 Human Papillomavirus (HPV) Immunization (1 - 3-dose SCDM series) 2006 Cervical Cancer Screening (CCS) 2009 HPV/Cotest 2009 Cologuard 2024 Colonoscopy 2024 Colorectal Cancer Screening 2024 Immunochemical Fecal Occult Blood 2024 Influenza Immunization (#1) 2025 SARS-COV-2 Immunization ( season) 2025 Respiratory Syncytial Virus (RSV) Immunization (Adult) (1 - 1-dose 75+ series) 2054 Meningococcal Immunization (ACWY) Aged Out No longer eligible based on patient's age to complete this topic Pneumococcal Immunization Combined Aged Out No longer eligible based on patient's age to complete this topic Rotavirus Immunization Aged Out No lo nger eligible based on patient's age to complete this topic Care Teams Web Services Professional Relationship Specialty Start Date End Date Lesli Alcazar MD [address] [place] [address] PCP - General Family Medicine 11/30/16
[2025-06-06 08:51] LABS: Hematocrit 45.0 % (37.0-47.0); Hemoglobin 14.7 g/dL (12.0-15.0); Immature Granulocyte Percent A 0.2 % (0-0.5); Lymphocytes Absolute Auto 1.71 K/mm3 (0.9-3.2); Mean Corpuscular HGB Conc 32.7 g/dl (32-36); Mean Corpuscular Hemoglobin 32.6 pg (26-34); Mean Corpuscular Volume 99.8 fl (80-100); Nucleated Red Blood Cells Absolute Auto 0.000 K/mm3 (0.0-0.012); Nucleated Red Blood Cells Perc 0.0 % (0.0-0.2); Platelet Count Result 178 k/mm3 (150-375); Red Blood Count 4.51 M/mm3 (4.2-5.4); White Blood Count 5.0 K/mm3 (4.5-10.0)
--- NOTE | 2025-06-06 09:08 | ECHO_ITS ---
Patient Info Name: Yani Judd Age: 44 years : 1980 Gender: Female Ht: 67 in Wt: 150 lbs BSA: 1.80 m2 HR: 64 bpm BP: 118 / 68 mmHg Technical Quality: Good Exam Date: 06/06/2025 9:12 AM Patient Status: O Admit Date: 06/06/2025 Exam Type: CA echo doppler color flow Complete two-dimensional, color flow and Doppler transthoracic echocardiogram is performed. Housing Relocation: Torrie Reyes Attending Provider: Jose Orta Summary 1. Left ventricular chamber size, wall thickness, systolic and diastolic function are normal with no regional wall motion abnormalities with an estimated ejection fraction of 60-65. 2. Right ventricle chamber size are normal. 3. Right ventricular systolic function is normal. 4. The tricuspid valve is structurally and functionally normal by two-dimensional, color flow Doppler and Doppler interrogation. 5. There is mild tricuspid valve regurgitation. 6. Estimated pulmonary arterial systolic pressure is 31 mmHg. 7. Pericardium is normal in appearance with no evidence for significant pericardial effusion. Left Ventricle Left ventricular chamber size, wall thickness, systolic and diastolic function are normal with no regional wall motion abnormalities with an estimated ejection fraction of 60-65. Right Ventricle Right ventricle chamber size are normal. Right ventricular systolic function is normal. Left Atria Left atrial chamber dimension is normal. Right Atria Right atrial chamber dimension is normal. Atrial Septum Intact interatrial septum visualized by 2D imaging. Aortic Valve trileaflet aortic valve is structurally and functionally normal by two-dimensional, color flow Doppler and Doppler interrogation. Mitral Valve Mitral valve is structurally and functionally normal to two-dimensional, color flow Doppler and Doppler interrogation. Tricuspid Valve The tricuspid valve is structurally and functionally normal by two-dimensional, color flow Doppler and Doppler interrogation. There is mild tricuspid valve regurgitation. Estimated pulmonary arterial systolic pressure is 31 mmHg. Pulmonary Arteries Main pulmonary artery is normal by two dimensional, color flow and Doppler interrogation. Pericardium/Pleural Pericardium is normal in appearance with no evidence for significant pericardial effusion. Aorta The aortic root aorta is by two-dimensional , color flow Doppler and Doppler interrogation. The ascending aorta arch size is normal. Left Ventricular Outflow Tract Name Value Normal LVOT 2D LVOT Diameter 2.0 cm LVOT Doppler LVOT Peak Velocity 104 cm/s LVOT Peak Gradient 4 mmHg LVOT Mean Gradient 2 mmHg LVOT VTI 21 cm LVOT VTI/AV VTI Ratio 0.9 LVOT Stroke Volume 66 ml LVOT CO 4.4 l/min LVOT CI 2.4 l/min/m2 Pulmonic Valve Name Value Normal RVOT Doppler RVOT Peak Velocity 78 cm/s RVOT Peak Gradient 2 mmHg PV Doppler PV Peak Velocity 95 cm/s PV Peak Gradient 4 mmHg Mitral Valve Name Value Normal MV Diastolic Function MV E Peak Velocity 75 cm/s MV A Peak Velocity 65 cm/s MV E/A 1.2 MV Decel Time (PW) 187 ms Tricuspid Valve Name Value Normal TV Regurgitation Doppler TR Peak Velocity 227 cm/s TR Peak Gradient 21 mmHg Estimated PAP/RSVP RA Pressure 10 mmHg <=5 PA Systolic Pressure 31 mmHg <36 RV Systolic Pressure 31 mmHg <36 Aorta Name Value Normal Ascending Aorta Ao Root Diameter (MM) 3.3 cm Ao Root Diam Index (MM) 1.8 cm/m2 Aortic Valve Name Value Normal AV Doppler AV Peak Velocity 114 cm/s AV Peak Gradient 5 mmHg AV Mean Gradient 3 mmHg AV VTI 23 cm AV Area (Cont Eq VTI) 2.9 cm2 >=3.0 AV Area (Cont Eq Benny) 2.9 cm2 AV DI (Benny) 0.91 AV Regurgitation 2D LVOT Area 3.2 cm2 Ventricles Name Value Normal LV Dimensions 2D/MM IVS Diastolic Thickness (2D) 0.8 cm 0.6-1.0 IVS Diastole Thickness (MM) 1.1 cm 0.6-0.9 LVID Diastole (2D) 4.5 cm 3.8-5.2 LVID Diastole (MM) 4.8 cm 3.8-5.2 LVIW Diastolic Thickness (2D) 0.8 cm 0.6-0.9 LVIW Diastolic Thickness (MM) 0.8 cm 0.6-0.9 LVID Systole (2D) 2.8 cm 2.2-3.5 LVID Systole (MM) 2.8 cm 2.2-3.5 LVOT Diameter 2.0 cm LV Mass (2D Cubed) 120.49 g 67.00-162.00 LV Mass Index (2D Cubed) 67 g/m2 43-95 Relative Wall Thickness (2D) 0.37 <=0.42 LV Mass (MM Cubed) 152.05 g 67.00-162.00 LV Mass Index (MM Cubed) 85 g/m2 43-95 Relative Wall Thickness (MM) 0.32 LV Fractional Shortening/Ejection Fraction 2D/MM LV Fractional Shortening (2D) 39 % 27-45 LV Fractional Shortening (MM) 42 % 27-45 LV EF (MM Teichholz) 73 % LV EF (2D Teichholz) 69 % LV Diastolic Volume (4C MOD) 99 ml LV EF (4C MOD) 59 % LV Diastolic Volume (2C MOD) 87 ml LV EF (2C MOD) 66 % LV Diastolic Volume (BP MOD) 92 ml 46-106 LV Diastolic Volume Index (BP MOD) 51 ml/m2 29-61 LV Systolic Volume (BP MOD) 36 ml 14-42 LV Systolic Volume Index (BP MOD) 20 ml/m2 8-24 LV EF (BP MOD) 61 % 54-74 LV Diastolic Length (4C) 7.8 cm LV Systolic Length (4C) 6.8 cm LV Stroke Volume (4C MOD) 58 ml Atria Name Value Normal LA Dimensions LA Dimension (MM) 2.5 cm 2.7-3.8 Report Signatures
[2025-06-06 09:38] LABS: Alanine Aminotransferase 13 U/L (6-35); Albumin Level 4.4 g/dL (3.5-5.1); Alkaline Phosphatase 48 U/L (38-126); Anion Gap 5 mmol/L (4-12); Aspartate Amino Transferase 19 U/L (14-36); Bilirubin,Total 0.7 mg/dL (0.2-1.3); Blood Urea Nitrogen 17 mg/dL (7-17); Calcium 9.2 mg/dL (8.4-10.2); Carbon Dioxide 27 mmol/L (22-30); Chloride 108 mmol/L (98-107); Cholesterol 161 mg/dL (0-200); Estimated Glomerular Filt Rate > 60; Glucose 98 mg/dL (65-110); HDL Direct 50 mg/dL; Potassium 4.6 mmol/L (3.4-5.0); Sodium 140 mmol/L (137-145); Total Protein 7.5 g/dL (6.3-8.2); Triglycerides 54 mg/dL (<150)
== END 2025-06-06 08:32 | disposition home or self-care (01) ==
DX: I34.1 Nonrheumatic mitral (valve) prolapse (principal); R53.83 Other fatigue; Z00.00 Encounter for general adult medical examination without abnormal findings
CPT/HCPCS: 36415; 80053; 80061; 85025; 93306